=== PATIENT | male | born 1945 | race African-American/Black ===

== ENCOUNTER 2020-08-06 21:46 | Emergency (ER) | payer MEDICARE, MEDICAID ==
[~2020-08-06] VITALS: Ht 188 cm; Wt 90.0 kg
[2020-08-06 23:45] LABS: BASOPHILS % 0.2 % (0.0-2.0); EOSINOPHILS % 0.5 % (0.0-5.0); HEMATOCRIT. 39.1 % (42.0-52.0); HEMOGLOBIN. 13.6 g/dL (14.0-18.0); LYMPHOCYTES % 21.2 % (20.0-50.0); MEAN CORPUSCULAR HEMOGLOBIN 33.2 pg (28.0-32.0); MEAN CORPUSCULAR VOLUME 95.5 fL (80.0-94.0); MEAN PLATELET VOLUME 9.5 fl (7.4-10.4); MONOCYTES % 7.8 % (2.0-8.0); NEUTROPHILS % 70.3 % (40.0-76.0); PLATELET 129 x1000/uL (130-400); RED CELL DISTRIBUTION WIDTH 14.6 % (11.6-14.6)
[2020-08-06 23:53] LABS: D-DIMER 0.56 mg/L FEU (<0.50); INR 1.2; PROTHROMBIN TIME 12.3 sec (9.6-11.0)
[2020-08-06 23:58] LABS: CHLORIDE 105 mEq/L (98-107)
[2020-08-07] MEDS ORDERED: ENOXAPARIN 100MG/ML SYR SUBCUT NR (02:07)
[2020-08-07] MEDS ORDERED: IOHEXOL-350 100 ML BOTTLE ONE (05:24)
[2020-08-07 06:37] VITALS: BP 123/83
== END 2020-08-07 07:12 | disposition left against medical advice (07) ==
LOC: ER 21:46
DX: Z03.818 Encounter for observation for suspected exposure to other biological agents ruled out (principal); J43.9 Emphysema, unspecified; R45.1 Restlessness and agitation
CPT/HCPCS: 36415; 71045; 71275; 74177; 80053; 83605; 83690; 83880; 84145; 84484; 85025; 85379; 85610; 87635; 96372; 99285; J1650; Q9967